=== PATIENT | male | born 1985 | race Caucasian/White ===

== ENCOUNTER 2019-06-28 09:35 | Emergency (ER) | payer OTHER ==
[~2019-06-28] VITALS: Ht 193 cm; Wt 145.1 kg
[2019-06-28] MEDS ORDERED: ASPIRIN CHEWABLE 81 MG TABLET. PO ONE (10:15)
[2019-06-28 10:26] LABS: BASO % 1 % (0-3); EOS # 0.1 x10^3/uL (0.0-0.7); EOS % 2 % (0-3); HEMATOCRIT 40.8 % (39.0-53.0); HEMOGLOBIN 13.9 g/dL (13.0-17.5); LYMPH # 1.5 x10^3/uL (1.0-4.8); LYMPH % 31 % (24-48); MEAN CORPUSCULAR HEMOGLOBIN 28 pg (25-35); MEAN CORPUSCULAR HGB CONC 34 g/dL (31-37); MEAN CORPUSCULAR VOLUME 82 fL (79-100); MONO # 0.4 x10^3/uL (0.0-1.1); MONO % 8 % (0-9); NEUT # 2.9 x10^3/uL (1.8-7.7); NEUT % 59 % (31-73); PLATELET COUNT 228 x10^3/uL (140-400); RED BLOOD COUNT 4.98 x10^6/uL (4.30-5.70); RED CELL DISTRIBUTION WIDTH 13.3 % (11.5-14.5); WHITE BLOOD COUNT 4.9 x10^3/uL (4.0-11.0)
[2019-06-28 10:29] LABS: CALCIUM 9.4 mg/dL (8.5-10.1); CREATININE 1.1 mg/dL (0.7-1.3); GFR 77.1; POTASSIUM 3.9 mmol/L (3.5-5.1)
[2019-06-28 10:35] LABS: ALBUMIN 4.2 g/dL (3.4-5.0); ALBUMIN/GLOBULIN RATIO 1.2 (1.0-1.7); MAGNESIUM 1.9 mg/dL (1.8-2.4); TOTAL BILIRUBIN 1.3 mg/dL (0.2-1.0); TOTAL PROTEIN 7.7 g/dL (6.4-8.2)
--- NOTE | 2019-06-28 10:48 | RAD ---
Study: CHEST PA LATERAL Indication: Chest pain. Comparison: None. Findings: No lobar infiltrate, pleural effusion or pneumothorax. Unremarkable cardiomediastinal silhouette. No free air seen under the diaphragm. Impression: Unremarkable radiographic appearance of the chest. Electronically signed by: PATY GOMEZ MD (06/28/2019 10:45 AM) [facility]
--- NOTE | 2019-06-28 11:23 | RAD ---
Indication:Epigastric and substernal pain. TECHNIQUE: Grayscale, color Doppler and spectral waveform is of the abdomen obtained. COMPARISON:None FINDINGS: Visualized pancreas within normal limits. Tip of the pancreatic tail not visualized due to overlying bowel gas. Contracted gallbladder with no gallstones, pericholecystic fluid seen. Gallbladder is thickened measuring 5 mm likely from contracted state. Right kidney measures 10.5 cm in length without hydronephrosis. Liver measures 17 cm in longest dimension and is diffuse increased echogenicity and decreased through transmission. Main portal vein is patent. CBD measures 6 mm in diameter and is mildly enlarged for patient's age. IVC is within normal limits. Mid and distal aorta not well visualized due to overlying bowel gas. IMPRESSION: 1. No cholelithiasis. 2. Hepatic steatosis. 3. Minimally dilated CBD. If concern for choledocholithiasis is high consider further evaluation with MRCP. Electronically signed by: Perfecto Berger DO (06/28/2019 11:19 AM) [facility]
[2019-06-28 11:30] VITALS: BP 118/67
--- NOTE | 2019-06-28 11:32 | EKG ---
[facility] [address] [place] [address] Test Date: 2019-06-28 Test Time: 09:42:21 Pat Name: GERALD SINGH Department: Room: Gender: M [employer] Injector: : 1985 Requested By: SVETLANA MICHELLE Order Number: [id number] Reading MD: Measurements Intervals [place] Rate: 61 P: 56 MT: 182 QRS: 38 QRSD: 96 T: 20 QT: 424 QTc: 432 Interpretive Statements SINUS ARRHYTHMIA INDETERMINATE AXIS INCOMPLETE RIGHT BUNDLE BRANCH BLOCK NON SPECIFIC T ABNORMALITY BORDERLINE ECG No previous ECG available for comparison
[2019-06-28] MEDS ORDERED: NAPR-683 PO (12:37)
--- NOTE | 2019-06-28 12:38 | PHYS DOC ---
Past Medical History Past Medical History: No Pertinent History Past Surgical History: No Surgical History Alcohol Use: Rarely Drug Use: None Adult General Chief Complaint Chief Complaint: CHEST PAIN [facility] HPI Patient is a 34 year old male who presents with complaining of chest pain. Patient complaining of dull pain in his back and substernal area and left side of chest for history taking discharge around 7 AM today as a constant dull pain with radiation to his back and associated with intermittent episodes of short ness of breath and dizziness. Patient states he walked from parking lot to his work and felt more shortness of breath and increasing of the chest pain with near syncope and decided to come to emergency room. Patient rated his pain for over 10. Patient denies history of DVT and PE and cardiac risk factors. Review of Systems Review of Systems Constitutional: Denies fever or chills [] Eyes: Denies change in visual acuity, redness, or eye pain [] HENT: Denies nasal congestion or sore throat [] Respiratory: Denies cough, reports shortness of breath Cardiovascular: No additional information not addressed in HPI [] GI: Denies abdominal pain, nausea, vomiting, bloody stools or diarrhea [] : Denies dysuria or hematuria [] Musculoskeletal: Denies back pain or joint pain [] Integument: Denies rash or skin lesions [] Neurologic: Denies headache, focal weakness or sensory changes [] Endocrine: Denies polyuria or polydipsia [] All other systems were reviewed and found to be within normal limits, except as documented in this note. Current Medications Current Medications Current Medications Medications (Trade) Dose Ordered Sig/Yung Start Time Stop Time Status Last Admin Dose Admin Aspirin (Children'S Aspirin) 324 mg 1X ONCE 06/28/19 10:15 06/28/19 10:20 DC 06/28/19 10:16 324 MG Allergies Allergies Allergies Coded Allergies Type Severity Reaction Last Updated Verified No Known Drug Allergies 06/28/19 No Physical Exam Physical Exam Constitutional: Well developed, well nourished, mild distress, non-toxic appearance. [] HENT: Normocephalic, atraumatic. Eyes: PERRLA, EOMI, conjunctiva normal, no discharge. [] Neck: Normal range of motion, no tenderness, supple, no stridor. [] Cardiovascular:Heart rate regular rhythm, no murmur [] Lungs & Thorax: Bilateral breath sounds clear to auscultation [] Abdomen: Bowel sounds normal, soft, no tenderness, no masses, no pulsatile masses. [] Skin: Warm, dry, no erythema, no rash. [] Back: No tenderness, no CVA tenderness. [] Extremities: No tenderness, no cyanosis, no clubbing, ROM intact, no edema. [] Neurologic: Alert and oriented X 3, no focal deficits noted. [] Psychologic: Affect normal, judgement normal, mood normal. [] Current Patient Data Vital Signs Vital Signs Date Time Temp Pulse Resp B/P (MAP) Pulse Ox O2 Delivery O2 Flow Rate FiO2 06/28/19 11:30 62 118/67 (84) 98 Room Air 06/28/19 09:45 98.6 18 98.6 Lab Values Laboratory Tests Test 06/28/19 09:55 06/28/19 09:59 White Blood Count 4.9 x10^3/uL (4.0-11.0) Red Blood Count 4.98 x10^6/uL (4.30-5.70) Hemoglobin 13.9 g/dL (13.0-17.5) Hematocrit 40.8 % (39.0-53.0) Mean Corpuscular Volume 82 fL (79-100) Mean Corpuscular Hemoglobin 28 pg (25-35) Mean Corpuscular Hemoglobin Concent 34 g/dL (31-37) Red Cell Distribution Width 13.3 % (11.5-14.5) Platelet Count 228 x10^3/uL (140-400) Neutrophils (%) (Auto) 59 % (31-73) Lymphocytes (%) (Auto) 31 % (24-48) Monocytes (%) (Auto) 8 % (0-9) Eosinophils (%) (Auto) 2 % (0-3) Basophils (%) (Auto) 1 % (0-3) Neutrophils # (Auto) 2.9 x10^3/uL (1.8-7.7) Lymphocytes # (Auto) 1.5 x10^3/uL (1.0-4.8) Monocytes # (Auto) 0.4 x10^3/uL (0.0-1.1) Eosinophils # (Auto) 0.1 x10^3/uL (0.0-0.7) Basophils # (Auto) 0.0 x10^3/uL (0.0-0.2) Prothrombin Time 13.0 SEC (11.7-14.0) Prothrombin Time INR 1.0 (0.8-1.1) D-Dimer (Hilda) 0.32 ug/mlFEU (0.00-0.50) Sodium Level 144 mmol/L (136-145) Potassium Level 3.9 mmol/L (3.5-5.1) Chloride Level 107 mmol/L (98-107) Carbon Dioxide Level 29 mmol/L (21-32) Anion Gap 8 (6-14) Blood Urea Nitrogen 19 mg/dL (8-26) Creatinine 1.1 mg/dL (0.7-1.3) Estimated GFR (Cockcroft-Gault) 77.1 BUN/Creatinine Ratio 17 (6-20) Glucose Level 105 mg/dL (70-99) H Calcium Level 9.4 mg/dL (8.5-10.1) Magnesium Level 1.9 mg/dL (1.8-2.4) Total Bilirubin 1.3 mg/dL (0.2-1.0) H Aspartate Amino Transferase (AST) 19 U/L (15-37) Alanine Aminotransferase (ALT) 27 U/L (16-63) Alkaline Phosphatase 92 U/L (46-116) Creatine Kinase 111 U/L (39-308) Troponin I Quantitative < 0.017 ng/mL (0.000-0.055) JY-Qkq-C-Type Natriuretic Peptide 73 pg/mL (0-124) Total Protein 7.7 g/dL (6.4-8.2) Albumin 4.2 g/dL (3.4-5.0) Albumin/Globulin Ratio 1.2 (1.0-1.7) Lipase 53 U/L (73-393) L Glucose (Fingerstick) 97 mg/dL (70-99) Laboratory Tests 06/28/19 09:55 Laboratory Tests 06/28/19 09:55 EKG EKG EKG interpreted by me. EKG at 0 942 showed normal sinus rhythm at rate of 62, sinus arrhythmia, incomplete right bundle-branch block, nonspecific T-wave abnormalities, no acute ST and T-wave elevation. Radiology/Procedures Radiology/Procedures [][facility] [address] [place] [address] IMAGING REPORT Signed PATIENT: GERALD SINGH ACCOUNT: [id number] : 1985 LOCATION: ER AGE: 34 SEX: M EXAM STATUS: REG ER ORD. PHYSICIAN: SVETLANA MICHELLE MD REASON: chest pain PROCEDURE: CHEST PA & LATERAL Study: CHEST PA LATERAL Indication: Chest pain. Comparison: None. Findings: No lobar infiltrate, pleural effusion or pneumothorax. Unremarkable cardiomediastinal silhouette. No free air seen under the diaphragm. Impression: Unremarkable radiographic appearance of the chest. Electronically signed by: PATY GOMEZ MD (06/28/2019 10:45 AM) [facility] DICTATED and SIGNED BY: PATY GOMEZ MD DATE: 06/28/[address] [place] [id number] IMAGING REPORT Signed PATIENT: GERALD SINGH ACCOUNT: [id number] : 1985 LOCATION: ER AGE: 34 SEX: M EXAM STATUS: REG ER ORD. PHYSICIAN: SVETLANA MICHELLE MD REASON: epigastric and substernal pain PROCEDURE: ABDOMEN LTD Indication:Epigastric and substernal pain. TECHNIQUE: Grayscale, color Doppler and spectral waveform is of the abdomen obtained. COMPARISON:None FINDINGS: Visualized pancreas within normal limits. Tip of the pancreatic tail not visualized due to overlying bowel gas. Contracted gallbladder with no gallstones, pericholecystic fluid seen. Gallbladder is thickened measuring 5 mm likely from contracted state. Right kidney measures 10.5 cm in length without hydronephrosis. Liver measures 17 cm in longest dimension and is diffuse increased echogenicity and decreased through transmission. Main portal vein is patent. CBD measures 6 mm in diameter and is mildly enlarged for patient's age. IVC is within normal limits. Mid and distal aorta not well visualized due to overlying bowel gas. IMPRESSION: 1. No cholelithiasis. 2. Hepatic steatosis. 3. Minimally dilated CBD. If concern for choledocholithiasis is high consider further evaluation with MRCP. Electronically signed by: Perfecto Berger DO (06/28/2019 11:19 AM) [facility] DICTATED and SIGNED BY: PERFECTO BERGER DO DATE: 06/28/19 1119 Course & Med Decision Making Course & Med Decision Making Pertinent Labs and Imaging studies reviewed. (See chart for details) Evaluation of patient in ER showed 34-year-old male with heart score of 1 complaining of chest pain. Patient had unremarkable physical exam, EKG, labs for mild elevation of d-dimer being, gallbladder ultrasound and cardiac enzyme and d-dimer. Patient felt better with his pain in ER and states the pain moved from his chest to his abdomen. Plan discharge patient home to diagnose of chest wall pain. Dragon Disclaimer Dragon Disclaimer This electronic medical record was generated, in whole or in part, using a voice recognition dictation system. Departure Departure Impression: Primary Impression: Musculoskeletal chest pain Disposition: HOME, SELF-CARE (1236) Condition: IMPROVED (at 1236) Referrals: NO PCP (PCP) Patient Instructions: Chest Wall Pain Additional Instructions: Drink plenty of liquids Follow-up with your primary care physician in 3-5 days Return to ER if not getting better Scripts Naproxen (NAPROSYN) 500 Mg Tablet 1 TAB PO BID for pain, #20 TAB Prov: SVETLANA MICHELLE MD 06/28/19 The HEART Score for CP Pts HEART Score for Chest Pain: HEART Score for Chest Pain Response (Comments) Value History Slighlty/Non-Suspicious 0 ECG Nonspecific Repolarizatio 1 Age < 45 0 Risk Factors No Risk Factors 0 Troponin < Normal Limit 0 Total 1 Risk Factors: Risk Factors: DM, Current or recent (<one month) smoker, HTN, HLP, family history of CAD, obesity. Risk Scores: Score 0 - 3: 2.5% MACE over next 6 weeks - Discharge Home Score 4 - 6: 20.3% MACE over next 6 weeks - Admit for Clinical Observation Score 7 - 10: 72.7% MACE over next 6 weeks - Early Invasive Strategies SVETLANA MICHELLE MD Jun 28, 2019 12:38
== END 2019-06-28 12:55 | disposition home or self-care (01) ==
LOC: ER 09:35
DX: R07.89 Other chest pain (principal); R06.02 Shortness of breath; R42 Dizziness and giddiness; R55 Syncope and collapse
CPT/HCPCS: 36415; 71046; 76705; 80053; 82550; 82962; 83690; 83735; 83880; 84484; 85025; 85379; 85610; 93005; 99285-25